=== PATIENT | female | born 1945 | race Caucasian/White ===

== ENCOUNTER 2016-10-30 13:41 | Emergency (ER) | payer OTHER ==
[2016-10-30 16:19] VITALS: BP 165/78
[2016-10-30] MEDS ORDERED: ATORVASTATIN CA80 MG PO (17:12)
[2016-10-30] MEDS ORDERED: AMLODIPINE BESY10 MG PO (17:12)
[2016-10-30] MEDS ORDERED: ABILIFY30 MG PO (17:12)
[2016-10-30] MEDS ORDERED: SINEMET 25-1001 EACH PO (17:13)
[2016-10-30] MEDS ORDERED: ENALAPRIL20 MG PO (17:13)
[2016-10-30] MEDS ORDERED: TYLENOL WITH CO1 TA1 PO (17:13)
[2016-10-30] MEDS ORDERED: GLUCOTROL10 M2 PO (17:14)
[2016-10-30] MEDS ORDERED: GABAPENTIN400 M2 PO (17:14)
[2016-10-30] MEDS ORDERED: IBU800 M1 PO (17:14)
[2016-10-30] MEDS ORDERED: LEVEMIR FLEX100 U/ML SC (17:15)
[2016-10-30] MEDS ORDERED: METOPROLOL TAR100 M1 PO (17:15)
[2016-10-30] MEDS ORDERED: WELLBUTRIN 75MG75 MG PO (17:16)
[2016-10-30] MEDS ORDERED: TRAMADOL 50 MG TAB PO (17:16)
[2016-10-30] MEDS ORDERED: PAROXETINE HYDR40 MG PO (17:16)
[2016-10-30] MEDS ORDERED: TOPAMAX200 M1 PO (17:17)
== END 2016-10-30 16:59 | disposition short-term general hospital (02) ==
LOC: ED 13:41
DX: A41.9 Sepsis, unspecified organism (principal); I21.4 Non-ST elevation (NSTEMI) myocardial infarction; I48.91 Unspecified atrial fibrillation; I10 Essential (primary) hypertension
CPT/HCPCS: J1644; J3480; J7030